=== PATIENT | female | born 1985 | race African-American/Black ===

== ENCOUNTER 2025-04-23 15:57 | Emergency (ER) | payer OTHER ==
[~2025-04-23] VITALS: Ht 165.1 cm; Wt 84.0 kg
[2025-04-23 16:08] VITALS: BP 149/72; TEMP 36.7; O2SAT 100
[2025-04-23] MEDS ORDERED: LIDO-53 TP (17:58)
[2025-04-23] MEDS ORDERED: CAPS42.514 TP (17:58)
[2025-04-23] MEDS ORDERED: ACET-2708 MT (17:58)
[2025-04-23] MEDS: LIDOCAINE 5% PATCH TOP SCH (18:03)
[2025-04-23] MEDS: ACETAMINOPHEN 500MG TABLET PO ONE (18:03)
[2025-04-23 18:15] VITALS: PULSE 68; RESP 12; O2SAT 100
== END 2025-04-23 18:20 | disposition home or self-care (01) ==
LOC: ER 15:57
DX: R07.81 Pleurodynia (principal); Z90.710 Acquired absence of both cervix and uterus; Z79.899 Other long term (current) drug therapy
CPT/HCPCS: 71045; 81025; 99283